=== PATIENT | female | born 1975 | race Caucasian/White ===

== ENCOUNTER 2017-04-21 15:23 | Observation (INO) ==
[2017-04-21] MEDS ORDERED: IOPAMIDOL 100 ML BOTTLE IV ONE ×2 (15:24→20:28)
[2017-04-21] MEDS ORDERED: 0.9 % SODIUM CHLORIDE 1,000 ML IV ONE (16:04)
--- NOTE | 2017-04-21 16:10 | Emergency Department Note ---
Abdominal Pain HPI - General Source: patient, family Mode of arrival: ambulatory Limitations: no limitations <Cathy Han - Last Filed: 04/21/17 19:14> <Roger Aguero - Last Filed: 04/22/17 03:32> - General Chief Complaint: Abdominal Pain Stated Complaint: luq pain, gallbladder issues in past Time Seen by Provider: 04/21/17 15:29 - History of Present Illness HPI Narrative: 41 year old female presents with left sided abdominal pain. She has had this for 7 days. She has had diarrhea for 24 hours. She also has been vomiting on and off. She last vomited a few days ago. She states she has not had this pain before. No hx of kidney stones, ovarian cysts, or diverticulosis. She states she has had gallbladder issues and feels like it is the same. She has had a hysterectomy and still has her ovaries. Hx of IBS but is usually constipation. She takes medication for this. Chills the last 2 days. No urinary symptoms. ( Cathy Han) - Related Data Home Medications Medication Instructions Recorded Confirmed Butalbital/Acetaminophen [Allzital 1 each PO DAILY PRN 06/21/16 04/21/17 25-325 mg Tablet] Thyroid,Pork [[place] Thyroid] 30 mg PO DAILY 06/21/16 04/21/17 SUMAtriptan SUCCINATE [Imitrex] 25 mg PO PRN PRN 04/21/17 04/21/17 buPROPion [Wellbutrin Xl] 300 mg PO DAILY 04/21/17 04/21/17 Allergies Allergy/AdvReac Type Severity Reaction Status Date / Time No Known Drug Allergies Allergy Verified 01/31/16 17:20 Review of Systems All systems ED: reviewed and negative except as stated. <Cathy Han - Last Filed: 04/21/17 19:14> Abdominal Pain PMH - Past Medical History Medical history: Reports: migraine, thyroid disease, other (IBS) Surgical history ED: Reports: hysterectomy [employer]IP[employer] history: Reports: non-contributory Family history: Reports: no significant family history - Social History Smoking status: Current some day smoker <Cathy Han - Last Filed: 04/21/17 19:14> Physical Exam - General Limitations: no limitations General appearance: alert, in no apparent distress - Head Head exam: atraumatic - Eye Eye exam: Present: normal appearance. Absent: conjunctival injection - Neck Neck exam: Present: normal inspection, full ROM - Chest Chest inspection: Present: normal inspection, symmetric chest wall rise - Respiratory Respiratory exam: Present: normal lung sounds bilaterally - Cardiovascular Cardiovascular exam: Present: regular rate, normal heart sounds - Abdominal Exam Abdominal exam: Present: soft, tenderness, normal bowel sounds. Absent: distention, guarding, rebound, rigidity, psoas sign, heel tap sign Abdominal tenderness: Present: RLQ, LUQ, LLQ, moderate (worse LLQ) - Extremities Exam Extremities exam: Present: normal inspection, full ROM - Neurological Exam Neurological exam: Present: alert, oriented X3 - Psychiatric Psychiatric exam: Present: normal affect, normal mood - Skin Skin exam: Present: warm, dry, intact <Cathy Han - Last Filed: 04/21/17 19:14> Vital Signs Temperature 97.3 F 04/21/17 15:24 Pulse Rate 80 04/21/17 15:24 Respiratory Rate 16 04/21/17 15:24 Blood Pressure 111/69 04/21/17 15:24 Pulse Oximetry (%) 100 04/21/17 15:24 Temperature 97.6 F 04/21/17 23:34 Pulse Rate 70 04/21/17 23:34 Respiratory Rate 18 04/21/17 23:34 Blood Pressure 104/67 04/21/17 23:34 Pulse Oximetry (%) 97 04/21/17 23:34 Abdominal Pain - Lab Data Lab results reviewed: Yes I reviewed the patient's lab results. Result diagrams: 04/21/17 16:12 04/21/17 16:12 - Radiology Data Radiology results reviewed: Yes I reviewed the patient's radiology results. <Cathy Han - Last Filed: 04/21/17 19:14> - Lab Data Result diagrams: 04/21/17 16:12 04/21/17 16:12 <Roger Aguero - Last Filed: 04/22/17 03:32> - Lab Data Lab Results 04/21/17 04/21/17 04/21/17 Range/Units 16:06 16:12 16:12 WBC 8.1 (4.5-11.0) K/mcL RBC 4.38 (4.00-5.20) M/mcL Hgb 13.8 (12.0-15.0) g/dL Hct 40.9 (36.0-48.0) % POC Hct 43.0 (36.0-48.0) % MCV 93.4 (80.0-100.0) fL MCH 31.5 (26.0-34.0) pg MCHC 33.7 (31.0-36.0) g/dL RDW 13.8 (11.5-14.5) % Plt Count 296 (140-440) K/mcL MPV 8.2 (7.4-10.4) fL Total Counted 100 Seg Neutrophils % 70 (38-78) % Band Neutrophils % Not Reportable Lymphocytes % 21 (15-49) % Monocytes % (Manual) 5 (1-12) % Eosinophils % (Manual) 3 (0-7) % Basophils % (Manual) 1 (0-2) % Platelet Estimate Normal (NORMAL) RBC Morphology Normal (NORMAL) ESR (0-20) mm/hr VBG Lactic Acid (0.5-2.2) mmol/L POC Sodium 139 (133-145) mmol/L Sodium 140 (133-145) mmol/L POC Potassium 3.2 L (3.3-5.1) mmol/L Potassium 3.2 L (3.3-5.1) mmol/L POC Chloride 101 (96-108) mmol/L Chloride 102 (96-108) mmol/L Carbon Dioxide 26 (22-30) mmol/L POC Total CO2 25 (22-30) mmol/L Anion Gap 12.0 (8-16) POC BUN 8 (6-20) mg/dl BUN 8 (6-20) mg/dl Creatinine 0.7 (0.6-1.1) mg/dl POC Creatinine 0.6 (0.6-1.1) mg/dl GFR Calculation 106 Glucose 92 (70-105) mg/dL POC Glucose 89 (70-105) mg/dL Calcium 9.0 (8.6-10.4) mg/dl POC WB Ioniz Calcium 1.21 (1.16-1.32) mmol/L Total Bilirubin 0.3 (0.0-1.0) mg/dL AST 15 (0-37) U/l ALT 13 (0-40) U/l Alkaline Phosphatase 38 L (39-117) U/L C-Reactive Protein < 0.3 (0.0-0.8) mg/dl Total Protein 6.7 (5.9-8.4) gm/dL Albumin 4.5 (3.2-5.2) gm/dL Globulin 2.2 (2.2-3.7) gm/dL Albumin/Globulin Ratio 2.0 (1.0-2.3) Lipase 22 (7-60) U/L Urine Color Yellow Urine Appearance Clear Urine pH 6.0 (5.0-9.0) Ur Specific Tyler 1.012 (1.000-1.035) Urine Protein Neg (NEG) mg/dL Urine Glucose (UA) Negative (NEG) mg/dL Urine Ketones Neg (NEG) mg/dL Urine Occult Blood Neg (<0.03) mg/dL Urine Nitrate Neg (NEG) Urine Bilirubin Neg (NEG) mg/dL Urine Urobilinogen Neg (NEG) mg/dL Ur Leukocyte Esterase Neg (NEG) /uL Urine RBC 0 (0-1) /hpf Urine WBC < 1 (0-4) /hpf Ur Squamous Epith Cells 1 (0-4) /hpf Urine Bacteria 0 (0) /hpf Urine Mucus Few (0) /hpf Ur Culture Indicated? No 04/21/17 04/21/17 Range/Units 16:12 19:54 WBC (4.5-11.0) K/mcL RBC (4.00-5.20) M/mcL Hgb (12.0-15.0) g/dL Hct (36.0-48.0) % POC Hct (36.0-48.0) % MCV (80.0-100.0) fL MCH (26.0-34.0) pg MCHC (31.0-36.0) g/dL RDW (11.5-14.5) % Plt Count (140-440) K/mcL MPV (7.4-10.4) fL Total Counted Seg Neutrophils % (38-78) % Band Neutrophils % Lymphocytes % (15-49) % Monocytes % (Manual) (1-12) % Eosinophils % (Manual) (0-7) % Basophils % (Manual) (0-2) % Platelet Estimate (NORMAL) RBC Morphology (NORMAL) ESR 3 (0-20) mm/hr VBG Lactic Acid 0.5 (0.5-2.2) mmol/L POC Sodium (133-145) mmol/L Sodium (133-145) mmol/L POC Potassium (3.3-5.1) mmol/L Potassium (3.3-5.1) mmol/L POC Chloride (96-108) mmol/L Chloride (96-108) mmol/L Carbon Dioxide (22-30) mmol/L POC Total CO2 (22-30) mmol/L Anion Gap (8-16) POC BUN (6-20) mg/dl BUN (6-20) mg/dl Creatinine (0.6-1.1) mg/dl POC Creatinine (0.6-1.1) mg/dl GFR Calculation Glucose (70-105) mg/dL POC Glucose (70-105) mg/dL Calcium (8.6-10.4) mg/dl POC WB Ioniz Calcium (1.16-1.32) mmol/L Total Bilirubin (0.0-1.0) mg/dL AST (0-37) U/l ALT (0-40) U/l Alkaline Phosphatase (39-117) U/L C-Reactive Protein (0.0-0.8) mg/dl Total Protein (5.9-8.4) gm/dL Albumin (3.2-5.2) gm/dL Globulin (2.2-3.7) gm/dL Albumin/Globulin Ratio (1.0-2.3) Lipase (7-60) U/L Urine Color Urine Appearance Urine pH (5.0-9.0) Ur Specific Tyler (1.000-1.035) Urine Protein (NEG) mg/dL Urine Glucose (UA) (NEG) mg/dL Urine Ketones (NEG) mg/dL Urine Occult Blood (<0.03) mg/dL Urine Nitrate (NEG) Urine Bilirubin (NEG) mg/dL Urine Urobilinogen (NEG) mg/dL Ur Leukocyte Esterase (NEG) /uL Urine RBC (0-1) /hpf Urine WBC (0-4) /hpf Ur Squamous Epith Cells (0-4) /hpf Urine Bacteria (0) /hpf Urine Mucus (0) /hpf Ur Culture Indicated? - Radiology Data Nodules of spleen, no hemorrhage (Han,Cathy) Disposition Pt seen by DEVELOPMENT ASSISTANT/PA only: No <Han,Cathy - Last Filed: 04/21/17 19:14> <Roger Aguero - Last Filed: 04/22/17 03:32> Clinical Impression: Nodule of spleen Nausea & vomiting Qualifiers: Vomiting type: unspecified Vomiting Intractability: non-intractable Qualified Code(s): R11.2 - Nausea with vomiting, unspecified Summary: I reviewed this patients information and work-up and this documentation; I examined patient. I agree with the included herein documentation of clinical information, evaluation, treatment. (Roger Aguero) Disposition: Xfer As Inpt ([facility]) Condition: Fair
[2017-04-21 16:50] LABS: Mean Cell Volume 93.4 fL (80.0-100.0); Mean Corpuscular HGB Conc 33.7 g/dL (31.0-36.0); Mean Corpuscular Hemoglobin 31.5 pg (26.0-34.0); Platelet Count 296 K/mcL (140-440); RBC 4.38 M/mcL (4.00-5.20); Red Cell Distribution Width 13.8 % (11.5-14.5)
[2017-04-21 17:04] LABS: Appearance,Urine CLEAR; Bacteria,Urine 0 /hpf (0); Bilirubin,Urine NEG (NEG); Color,Urine YELLOW; Glucose,Urine (UA) NEGATIVE (NEG); Leukocyte Esterase,Urine NEG /uL (NEG); Mucus,Urine FEW /hpf (0); Nitrate,Urine NEG (NEG); Protein,Urine NEG (NEG); Specific Gravity,Urine 1.012 (1.000-1.035); Urine Blood NEG mg/dL (<0.03); Urine RBC 0 /hpf (0-1); Urine Squamous Epithelial Cell 1 /hpf (0-4); Urine WBC < 1 /hpf (0-4); Urobilinogen,Urine NEG (NEG)
[2017-04-21] MEDS ORDERED: KETOROLAC 15 MG/ML VIAL IV ONE (17:17)
[2017-04-21] MEDS ORDERED: ONDANSETRON 4 MG/2 ML VIAL IV ONE (17:18)
[2017-04-21 17:20] LABS: ALT/SGPT 13 U/l (0-40); Albumin 4.5 gm/dL (3.2-5.2); Alkaline Phosphatase 38 U/L (39-117); Blood Urea Nitrogen 8 mg/dl (6-20); C-Reactive Protein < 0.3 mg/dl (0.0-0.8); Lipase 22 U/L (7-60)
[2017-04-21 17:34] LABS: Basophils % (Manual) 1 % (0-2); Eosinophils % (Manual) 3 % (0-7); Lymphocytes % 21 % (15-49); Monocytes % (Manual) 5 % (1-12); Platelet Estimate NORMAL (NORMAL); RBC Morphology NORMAL (NORMAL); Segmented Neutrophils % 70 % (38-78)
--- NOTE | 2017-04-21 18:25 | Cat Scan Report ---
CLINICAL INFORMATION: Reason for Exam:diarrhea, vomiting , bilateral pelvic pain and left upper quadrant pain COMPARISON: None. TECHNIQUE: Following injection of intravenous contrast the patient was scanned during the portal venous phase from the diaphragm through the symphysis pubis. Sagittal and coronal reformats were created.. FINDINGS: The liver is normal in size. There is an elongated left lobe which wraps anterior to the stomach. This is a developmental variant. The spleen is normal in size. However, there are least eight low-attenuation nodules scattered throughout the spleen. The largest is 8 mm. No free fluid around the spleen and no adjacent mass is present. The pancreas is normal and homogeneous. The adrenals and kidneys are normal. There are no gallstones or dilatation of the bile ducts. The uterus is been removed. Along the lateral pelvic sidewall there are nearly symmetric this is less likely due to pelvic adenopathy. The oral contrast passed through normal small intestine to the mid colon without obstruction. There is no evidence of diverticulitis or inflammatory bowel disease. The appendix is noninflamed. Urinary bladder is decompressed. No adenopathy is present in the abdomen or pelvis. Except for thin bands of scar or discoid atelectasis, lung bases are clear. Bones show no lytic or blastic lesion. Patient has bilateral breast implants with relatively little breast tissue in either side. There is a small rim of fluid around the left-sided breast implant. IMPRESSION: Multiple low-attenuation nodules scattered throughout the spleen. These do not appear to be cysts. Metastasis are possible but I see no other evidence of malignancy. Multiple splenic hemangiomas are relatively uncommon. An infection is possible. This would include multiple small abscesses, candidiasis, TB and pneumocystis. Cathy Han was called with results Interpreted and Authenticated by: Joni Gonzales 04/21/17
[2017-04-21] MEDS: HYDROmorphone 2 MG/ML SYRINGE IV PRN ×3 (19:05→22:54)
[2017-04-21] MEDS ORDERED: ONDANSETRON 4 MG/2 ML VIAL IV PRN (19:46)
[2017-04-21] MEDS ORDERED: POTASSIUM CHLORIDE 40 MEQ in DEXTROSE 5% IN WATER 500 ML IV ONE (19:49)
[2017-04-21] MEDS ORDERED: BUTALB/ACETAMINOPHEN/CAFFEINE 1 TABLET PO PRN (20:04)
[2017-04-21] MEDS: 0.9 % SODIUM CHLORIDE 1,000 ML IV SCH (21:06)
[2017-04-21] MEDS ORDERED: POTASSIUM CHLORIDE 20 MEQ/10 ML VIAL IV ONE (21:34)
[2017-04-21] MEDS: 0.9 % SODIUM CHLORIDE 10 ML SYRINGE IV SCH (22:22)
[2017-04-21] MEDS: ACETAMINOPHEN 325 MG TABLET PO PRN (22:53)
[2017-04-21] MEDS: DICYCLOMINE 20 MG TABLET PO SCH (23:08)
[2017-04-22] MEDS: ZOLPIDEM 5 MG TABLET PO PRN ×2 (01:23→20:41)
[2017-04-22] MEDS: HYDROmorphone 2 MG/ML SYRINGE IV PRN ×7 (01:23→20:47)
[2017-04-22] MEDS: ACETAMINOPHEN 325 MG TABLET PO PRN ×2 (04:43→23:10)
[2017-04-22] MEDS: 0.9 % SODIUM CHLORIDE 1,000 ML IV SCH ×3 (04:54→18:47)
[2017-04-22] MEDS: 0.9 % SODIUM CHLORIDE 10 ML SYRINGE IV SCH ×3 (06:06→20:41)
[2017-04-22 06:09] LABS: Mean Cell Volume 94.4 fL (80.0-100.0); Mean Corpuscular HGB Conc 33.7 g/dL (31.0-36.0); Mean Corpuscular Hemoglobin 31.8 pg (26.0-34.0); Platelet Count 273 K/mcL (140-440); RBC 4.23 M/mcL (4.00-5.20); Red Cell Distribution Width 13.8 % (11.5-14.5)
[2017-04-22 06:28] LABS: ALT/SGPT 12 U/l (0-40); Alkaline Phosphatase 35 U/L (39-117); Bilirubin,Direct < 0.2 mg/dL (0.0-0.3); Blood Urea Nitrogen 6 mg/dl (6-20); Gamma Glutamyl Transpeptidase 8 U/L (5-36); Magnesium 2.1 mg/dL (1.6-2.5); Uric Acid 3.5 mg/dL (2.5-8.0)
[2017-04-22 07:19] LABS: Eosinophils % (Manual) 8 % (0-7); Lymphocytes % 31 % (15-49); Monocytes % (Manual) 11 % (1-12); Platelet Estimate NORMAL (NORMAL); RBC Morphology NORMAL (NORMAL); Segmented Neutrophils % 50 % (38-78)
--- NOTE | 2017-04-22 08:15 | XRay Report ---
HISTORY: Reason for Exam:possible metastasis with multiple splenic nodules FINDINGS: The lungs are clear and well expanded. There is no evidence of mass, adenopathy or pleural effusion. The heart size and pulmonary vasculature are normal. There is mild arthritis in the mid and lower thoracic spine. No lytic or blastic bone lesion are identified. IMPRESSION: Normal chest. Interpreted and Authenticated by: Joni Gonzales 04/22/17
[2017-04-22] MEDS: DICYCLOMINE 20 MG TABLET PO SCH ×4 (08:59→20:41)
[2017-04-22] MEDS: PANTOPRAZOLE 40 MG PACKET PO SCH ×2 (08:59→17:41)
--- NOTE | 2017-04-22 13:09 | Cat Scan Report ---
CLINICAL INFORMATION: Reason for Exam:For evaluation of splenic lesions COMPARISON: 04/21/17 FINDINGS: Patient was first scanned without oral or IV contrast. Nonionic contrast was injected. Three-minute delayed images were obtained and compared with the 70 second postcontrast images performed on 04/21/17. The multiple low-attenuation nodules seen throughout the spleen on yesterday's CT scan are isodense with the surrounding splenic tissue on the precontrast views. This indicates they are not cysts. On the delayed images there is a solitary 8 mm subcapsular lesion located posteriorly which does not fill in completely with contrast and head remains hypodense compared to surrounding liver. The others all perfused and are now isodense. No liver lesion is seen. The adrenals and pancreas, gallbladder kidney are normal. There is some excreted contrast in the gallbladder from yesterday's CT scan. IMPRESSION: Multiple splenic nodules. Except for one of them, the others all perfused and became isodense with adjacent splenic tissue. 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 Follow-up upper abdominal CT scan with IV contrast in 3-4 months is recommended to ensure stability. Interpreted and Authenticated by: Joni Gonzales 04/22/17
--- NOTE | 2017-04-22 14:18 | General Surg History&Physical ---
History of Present Illness Patient information: Note initiated : 04/22/17 at 2:14 pm Service Date, if different from initiated Date: [] Patient: Heather Fernandez a 41 y/o F admitted on 04/21/17 for LUQ Pain, Gallbladder issues in past. Chief Complaint: [] HPI: Ms. Fernandez is a 41 year old F admitted on 21 April with complaint of pain under her ribs on the left side radiating to her left flank. Her symptoms have been present for 1 week. She started having emesis on Friday which was 3 days prior to admission. She developed diarrhea on Friday and had multiple episodes of diarrhea throughout the night. She has a history of constipation related to irritable bowel syndrome. The patient also states that eating makes her pain worse. She has a history of gallbladder dysfunction with sludge but no symptoms were usually on the right side. Her last colonoscopy was 2 years ago. She had 2 polyps removed at that time but her colon was otherwise normal. She has not had any rectal bleeding. She was admitted for pain control and control of nausea and vomiting. She also has multiple nodules of her spleen which have an appearance not suggestive of infection or neoplasia. Her sed rate and white blood count are normal. Review of Systems - Constitutional fatigue, headache(s), malaise, weakness - EENT Nose, mouth and throat: dizziness, neck pain, no abnormal hearing, no disequilibrium, no vertigo - Cardiovascular no chest pain with activity, no dyspnea, no irregular heart rhythm, no palpatations, no rapid heart rate, no syncope - Respiratory no cough, no wheezing, no pain on inspirtation, no chest congestion - Gastrointestinal abdominal pain, constipation, cramping, diarrhea, nausea, vomiting - Genitourinary Genitourinary: no difficulty voiding, no urinary hesitancy, no urinary urgency - Musculoskeletal arthralgias, back pain, muscle cramps, myalgias, no joint swelling - Integumentary no bleeding lesions, no changing lesions, no pruritus, no rash - Neurological headache(s), no abnormal gait, no convulsions, no dizziness, no memory loss, no syncope, no weakness - Psychiatric anxiety, depression, irritability - Endocrine fatigue, no palpitations - Hematologic/Lymphatic no easy bleeding, no easy bruising, no lymphadenopathy - Allergic/Immunologic no tongue swelling, no throat swelling, no uticaria, no wheezing, no lip swelling Past History Past medical history: Migraine headaches Hypothyroidism Past surgical history: Biceps tendon repair Abdominal hysterectomy Past family history: Father with thyroid disease otherwise healthy Mother with no major illness History of lung cancer brain cancer thyroid cancer and other members of the family History of hypertension Past social history: with one child Employed Smokes 5 cigarettes per week Drinks an occasional glass of wine Denies drug use Medications and Allergies Home Medications Medication Instructions Recorded Confirmed Type Butalbital/Acetaminophen [Allzital 1 each PO DAILY PRN 06/21/16 04/21/17 History 25-325 mg Tablet] Thyroid,Pork [[place] Thyroid] 30 mg PO DAILY 06/21/16 04/21/17 History SUMAtriptan SUCCINATE [Imitrex] 25 mg PO PRN PRN 04/21/17 04/21/17 History buPROPion [Wellbutrin Xl] 300 mg PO DAILY 04/21/17 04/21/17 History Hyoscyamine Sulfate [Levsin-Sl] 0.125 mg SL Q6 #120 tab.subl 04/23/17 Rx Allergies Allergy/AdvReac Type Severity Reaction Status Date / Time No Known Drug Allergies Allergy Verified 01/31/16 17:20 Exam Temp Pulse Resp BP Pulse Ox 97.8 F 71 18 118/73 99 04/22/17 12:00 04/22/17 04:00 04/22/17 12:00 04/22/17 12:00 04/22/17 12:00 - General physical appearance well developed, well nourished, moderate distress, moderate pain - Eyes PERRL, normal ocular movement - ENT normal pinna, normal nares, normal mucosa, no hearing loss, no congestion - Head Head exam IM: Present: atraumatic, normocephalic - Neck no masses, no bruits, trachea midline, no lymphadectomy, no venous distension - Cardiovascular Cardiovascular exam IM: Present: normal rate and rhythm - Respiratory normal expansion, normal respiratory effort, clear to percussion, clear to auscultation - Abdomen Abdomen: Present: soft, tender, bowel sounds, distended (Nondistended with tenderness in the left flank and left upper quadrant; no palpable mass; voluntary guarding without rebound) Hernia: Present: none - Integumentary Present: no rash, no growths, no abnormal pigmentation - Neurologic Present: normal coordination, normal sensation - Musculoskeletal Present: normal gait, normal posture - Psychiatric Present: oriented to time, oriented to person, oriented to place, speech is normal, memory intact, other (Extremely anxious but otherwise unremarkable) Assessment and Plan (1) Left upper quadrant abdominal pain of unknown etiology Symptoms have begun to improve and may very well represent an element of spastic bowel. Will treat with Levsin and analgesics. Status: Acute (2) Nodule of spleen We will discuss with radiologist the best test to determine the etiology of the splenic lesions. They are atypical for neoplasm but may be vascular lesions. Status: Acute (3) Nausea & vomiting We will treat symptomatically Status: Acute Qualifiers: Vomiting type: unspecified Vomiting Intractability: non-intractable Qualified Code(s): R11.2 - Nausea with vomiting, unspecified
--- NOTE | 2017-04-22 14:28 | General Surgery Progress Note ---
Subjective Patient reports: feels better, still having pain, tolerating liquids well, flatus, bowel movement Narrative: Note initiated : 04/22/17 at 2:24 pm Service Date, if different from initiated Date: [] Patient: Heather Fernandez a 41 y/o F admitted on 04/21/17 for LUQ Pain, Gallbladder issues in past. Chief Complaint: [Patient feels better. Her diarrhea has ceased. She has less nausea. She is very concerned about her splenic nodules which are probably benign. She has an alternate amount of anxiety. She has remained afebrile and her white blood count remains normal; her sed rate is also normal] Objective Temp Pulse Resp BP Pulse Ox 97.8 F 71 18 118/73 99 04/22/17 12:00 04/22/17 04:00 04/22/17 12:00 04/22/17 12:00 04/22/17 12:00 - Additional Data Intake & Output - Last 24 hours: Intake & Output 04/20/17 04/21/17 04/22/17 04/23/17 05:59 05:59 05:59 05:59 Intake Total 502 / 1502 1498 / 1498 Balance 502 / 1502 1498 / 1498 Weight 121 lb - General physical appearance moderate distress, moderate pain - Eyes PERRL - ENT no congestion - Neck no venous distension - Respiratory clear to auscultation - Cardiovascular Cardiovascular exam: Present: normal rate and rhythm, RRR, +S1, +S2. Absent: JVD - Abdomen soft, tender (mild tenderness in suprapubic and right lower quadrant without guarding) - Integumentary no rash, no growths, no abnormal pigmentation - Neurologic normal coordination, normal sensation - Musculoskeletal normal gait, normal posture - Psychiatric oriented to time, oriented to person, oriented to place, speech is normal, memory intact - Labs 04/22/17 04:18 04/22/17 04:18 Diabetes panel 04/22/17 Range/Units 04:18 Sodium 135 (133-145) mmol/L Potassium 4.1 (3.3-5.1) mmol/L Chloride 102 (96-108) mmol/L Carbon Dioxide 25 (22-30) mmol/L BUN 6 (6-20) mg/dl Creatinine 0.6 (0.6-1.1) mg/dl Glucose 87 (70-105) mg/dL Calcium 8.2 L (8.6-10.4) mg/dl AST 13 (0-37) U/l ALT 12 (0-40) U/l Alkaline Phosphatase 35 L (39-117) U/L Total Protein 6.0 (5.9-8.4) gm/dL Albumin 4.0 (3.2-5.2) gm/dL Triglycerides 57 (<150) mg/dl Calcium panel 04/22/17 Range/Units 04:18 Calcium 8.2 L (8.6-10.4) mg/dl Phosphorus 3.0 (2.7-4.5) mg/dL Albumin 4.0 (3.2-5.2) gm/dL Pituitary panel 04/22/17 Range/Units 04:18 Sodium 135 (133-145) mmol/L Potassium 4.1 (3.3-5.1) mmol/L Chloride 102 (96-108) mmol/L Carbon Dioxide 25 (22-30) mmol/L BUN 6 (6-20) mg/dl Creatinine 0.6 (0.6-1.1) mg/dl Glucose 87 (70-105) mg/dL Calcium 8.2 L (8.6-10.4) mg/dl Adrenal panel 04/22/17 Range/Units 04:18 Sodium 135 (133-145) mmol/L Potassium 4.1 (3.3-5.1) mmol/L Chloride 102 (96-108) mmol/L Carbon Dioxide 25 (22-30) mmol/L BUN 6 (6-20) mg/dl Creatinine 0.6 (0.6-1.1) mg/dl Glucose 87 (70-105) mg/dL Calcium 8.2 L (8.6-10.4) mg/dl Total Bilirubin 0.3 (0.0-1.0) mg/dL AST 13 (0-37) U/l ALT 12 (0-40) U/l Alkaline Phosphatase 35 L (39-117) U/L Total Protein 6.0 (5.9-8.4) gm/dL Albumin 4.0 (3.2-5.2) gm/dL Assessment and Plan (1) Right lower quadrant abdominal pain of unknown etiology Status: Acute Assessment and plan: will continue on present therapy. No indication for operative evaluation at this time. - Time Spent With Patient Total time spent is greater than 50% in coordination of care (as documented) at patient's floor/unit and/or counseling patient:
[2017-04-23] MEDS: 0.9 % SODIUM CHLORIDE 1,000 ML IV SCH (04:05)
[2017-04-23] MEDS: 0.9 % SODIUM CHLORIDE 10 ML SYRINGE IV SCH (04:05)
[2017-04-23] MEDS: ACETAMINOPHEN 325 MG TABLET PO PRN (05:59)
[2017-04-23] MEDS: PANTOPRAZOLE 40 MG PACKET PO SCH (07:58)
[2017-04-23] MEDS: DICYCLOMINE 20 MG TABLET PO SCH (08:32)
--- NOTE | 2017-04-23 10:08 | Discharge Summary ---
Providers - Providers Patient information: Note initiated : 04/23/17 at 10:05 am Service Date, if different from initiated Date: [] Patient: Heather Fernandez 41 y/o F admitted on 04/21/17 for LUQ Pain, Gallbladder issues in past. Chief Complaint: [ patient admitted with luq pain.] Date of admission: 04/21/17 Discharge date: 04/23/17 Attending physician: Lacey Haque Hospitalization Hospital course: 41-year-old female admitted through the emergency room with left upper quadrant pain nausea vomiting. She was also noted to have multiple lesions of her spleen and there was some concern of splenic neoplasm. She was afebrile and her white blood count was normal. Over the next 24 hours her symptoms improved and her nausea , vomiting, and diarrhea resolved. Her diet was advaced and she had a dual phase CT of the which suggested that her splenic lesions were hemangiomas. She was monitored overnight and discharged in stable condition with plans for follow-up with her primary physician. Discharge diagnosis: RECURRENT NAUSEA ,VOMITING AND DIARRHEA Secondary discharge diagnosis: IRRITABLE BOWEL SYNDROME HYPOTHYROIDISM MULTIPLE HEMANGIOMAS OF SPLEEN CHRONIC GENERAL ANXIETY DISORDER Reason for admission: ABDOMINAL PAIN ,NAUSEA , VOMITING AND DIARHEA Procedures: NONE Pertinent studies/significant findings: DUAL PHASE CONTRASTED CT OF ABDOMEN AND PELVIS Complications: NONE Exam Temp Pulse Resp BP Pulse Ox 98.9 F 77 18 106/66 94 04/23/17 07:48 04/23/17 04:00 04/23/17 07:48 04/23/17 07:48 04/23/17 07:48 - General physical appearance well developed, well nourished, no distress - Eyes PERRL, normal ocular movement - ENT normal pinna, normal nares, normal mucosa, no hearing loss, no congestion - Head Head exam IM: Present: atraumatic, normocephalic - Neck no masses, no bruits, trachea midline, no lymphadectomy, no venous distension - Cardiovascular Cardiovascular exam IM: Present: normal rate and rhythm - Respiratory normal expansion, normal respiratory effort, clear to percussion, clear to auscultation - Abdomen Abdomen: Present: soft, tender (MILD LUQ TENDERNESS WITHOUT GUARDING OR REBOUND ; NO MASS; NO DISTENTION), bowel sounds Hernia: Present: none - Integumentary Present: no rash, no growths, no abnormal pigmentation - Neurologic Present: normal coordination, normal sensation - Musculoskeletal Present: normal gait, normal posture - Psychiatric Present: oriented to time, oriented to person, oriented to place, speech is normal, memory intact, other (MODERATE ANXIETY) Discharge Plan - Patient/Caregiver Discharge Instructions Activity: increase activity as tolerated Diet: Regular Diet Additional Instructions: Increase activity as tolerated. Resume a regular diet. Please follow up with your primary caregiver to be seen in 7-10 days. Return to ER if your nausea and vomiting returns. 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 Prescriptions: Hyoscyamine Sulfate [Levsin-Sl] 0.125 mg SL Q6 #120 tab.subl - Follow up Plan Follow up with: Tosin Youssef ARNP [Nurse Practitioner] - Disposition: Home, Self-Care Prognosis: Good Rehab Potential: Good I certify that the patient requires SNF services.: No Overall status at discharge: patient is not back to baseline Pending Studies Resuscitation Status Full Code Diet Full Liquid Diet Start FriApr 22 Lunch Acetaminophen (Tylenol) 650 mg PO Q6HP PRN PRN Reason: PAIN/FEVER > 101 Last Admin: 04/23/17 05:59 Dose: 650 mg Admin: 04/22/17 23:10 Dose: 650 mg Admin: 04/22/17 04:43 Dose: 650 mg Admin: 04/21/17 22:53 Dose: 650 mg Dicyclomine HCl (Dicyclomine) 20 mg PO QID SUSANA Last Admin: 04/23/17 08:32 Dose: 20 mg Admin: 04/22/17 20:41 Dose: 20 mg Admin: 04/22/17 17:41 Dose: 20 mg Admin: 04/22/17 15:39 Dose: 20 mg Admin: 04/22/17 08:59 Dose: 20 mg Admin: 04/21/17 23:08 Dose: 20 mg Hydromorphone HCl (Dilaudid) 0.5 mg IV Q15MIN PRN PRN Reason: Pain Last Admin: 04/22/17 09:13 Dose: 0.5 mg Admin: 04/21/17 19:05 Dose: 0.5 mg Hydromorphone HCl (Dilaudid) 0.5 mg IV Q2HP PRN PRN Reason: Pain Last Admin: 04/22/17 20:47 Dose: 0.5 mg Admin: 04/22/17 17:38 Dose: 0.5 mg Admin: 04/22/17 13:26 Dose: 0.5 mg Admin: 04/22/17 07:02 Dose: 0.5 mg Admin: 04/22/17 04:44 Dose: 0.5 mg Admin: 04/22/17 01:23 Dose: 0.5 mg Admin: 04/21/17 22:54 Dose: 0.5 mg Admin: 04/21/17 21:37 Dose: 0.5 mg Sodium Chloride (Sodium Chloride 0.9%) 1,000 mls @ 125 mls/hr IV .Q8H SUSANA Last Admin: 04/23/17 04:05 Dose: 125 mls/hr Admin: 04/22/17 18:47 Dose: Not Given Infusion: 04/22/17 18:46 Dose: 125 mls/hr Admin: 04/22/17 10:46 Dose: 125 mls/hr Infusion: 04/22/17 09:27 Dose: 125 mls/hr Admin: 04/22/17 04:54 Dose: Not Given Infusion: 04/22/17 02:15 Dose: 125 mls/hr Infusion: 04/21/17 21:55 Dose: 0 mls/hr Admin: 04/21/17 21:06 Dose: 125 mls/hr Ondansetron HCl (Zofran) 4 mg IV Q4HP PRN PRN Reason: Nausea And Vomiting Last Admin: 04/22/17 08:02 Dose: 4 mg Pantoprazole Sodium (Protonix) 40 mg PO BIDAC SUSANA Last Admin: 04/23/17 07:58 Dose: 40 mg Admin: 04/22/17 17:41 Dose: 40 mg Admin: 04/22/17 08:59 Dose: 40 mg Sodium Chloride (Saline Flush) 10 ml IV Q8 SUSANA Last Admin: 04/23/17 04:05 Dose: Not Given Admin: 04/22/17 20:41 Dose: Not Given Admin: 04/22/17 15:14 Dose: Not Given Admin: 04/22/17 06:06 Dose: Not Given Admin: 04/21/17 22:22 Dose: Not Given Zolpidem Tartrate (Ambien) 5 mg PO HSP PRN PRN Reason: Insomnia Last Admin: 04/22/17 20:41 Dose: 5 mg Admin: 04/22/17 01:23 Dose: 5 mg Shift Summary 04/23/17 03:11 Shift Summary by Sunday Barrera Patient alert and oriented x4. Up with SBA to bathroom. Vital signs stable. IV to left AC is infusing NS at 125ml/hr. No reported nausea, vomiting or diarrhea during this shift. IV Dilaudid and PO Tylenol given for abdominal pain management. Patient is tolerating diet w/o difficulties and urinating adequately. She hopes to discharge this AM. Initialized on 04/23/17 03:11 - END OF NOTE
== END 2017-04-23 12:25 | disposition home or self-care (01) ==
LOC: ED 15:23 → MEDSUR 15:23
PROVIDERS: ADMIT Family Medicine Adult Medicine; ATTEND Family Medicine Adult Medicine